=== PATIENT | male | born 1995 | race Caucasian/White ===

== ENCOUNTER 2021-02-12 18:47 | Emergency (ER) | payer OTHER ==
[~2021-02-12] VITALS: Ht 162.6 cm; Wt 77.1 kg
[2021-02-12 19:18] VITALS: BP 139/72
[2021-02-12] MEDS ORDERED: ACETAMINOPHEN EXTRA STRENGTH 500 MG TAB PO ONE (20:25)
[2021-02-12 20:47] VITALS: BP 139/72
== END 2021-02-12 20:47 | disposition home or self-care (01) ==
LOC: MED 18:47
DX: S92.401A Displaced unspecified fracture of right great toe, initial encounter for closed fracture (principal); W18.40XA Slipping, tripping and stumbling without falling, unspecified, initial encounter; Y93.89 Activity, other specified; Y92.89 Other specified places as the place of occurrence of the external cause; Y99.8 Other external cause status
CPT/HCPCS: 73660; 99283